=== PATIENT | male | born 1980 | race Two or more races ===

== ENCOUNTER 2016-11-06 12:26 | Emergency (ER) | payer OTHER ==
--- NOTE | 2016-11-06 12:58 | ER Document Report ---
HPI - HPI Patient complains to provider of: back pain Onset: Other - Tuesday Onset/Duration: Constant, Persistent - Chronic, Worse Quality of pain: Throbbing Pain Level: 4 Context: 36-year-old male received his third steroid injection to his back in the lumbar region for chronic back pain at the [facility]. The pain has lasted longer and has not improved as usual. He also states during the procedure and the uroscopy the M.D. told him that it did not spread out as much as usual and seemed to be blocked. No fever or chills. He's been having to take more Percocet than usual for the pain. He talked to the on-call physician last night to told him to be checked in the emergency department. No saddle anesthesia or radiculopathy. Associated Symptoms: None Exacerbated by: Sitting, Movement Relieved by: Denies Similar symptoms previously: Yes Recently seen / treated by doctor: No - ROS ROS below otherwise negative: Yes Systems Reviewed and Negative: Yes All other systems reviewed and negative - DERM Skin Color: Normal Past Medical History - General Information source: Patient - Social History Smoking Status: Unknown if Ever Smoked Frequency of alcohol use: None Drug Abuse: None Lives with: Family Family History: Reviewed & Not Pertinent Patient has suicidal ideation: No Patient has homicidal ideation: No Renal/ Medical History: Denies: Hx Peritoneal Dialysis Musculoskeltal Medical History: Reports Other - Chronic back pain and degenerative disc disease number spine Surgical Hx: Negative Vertical Provider Document - CONSTITUTIONAL Agree With Documented VS: Yes Exam Limitations: No Limitations - HEENT HEENT: Normocephalic - NECK Neck: Supple - RESPIRATORY Respiratory: Breath Sounds Normal, No Respiratory Distress O2 Sat by Pulse Oximetry: 96 - CARDIOVASCULAR Cardiovascular: Regular Rate, Regular Rhythm - BACK Back: Normal Inspection - MUSCULOSKELETAL/EXTREMETIES Musculoskeletal/Extremeties: MAEW - Superior Left sacral iliac joint, FROM, Non- Tender, Tender - Left sacral iliac - NEURO Level of Consciousness: Awake, Alert Deep Tendon Reflexes: 2+ - Bilateral ankle and patellar - DERM Integumentary: Warm, Dry, No Rash Course - Re-evaluation Re-evalutation: 11/06/16 14:[address] Beth who states that the patient can increase to 10 mg oxycodone every 4-6 hours that they will make a notation in the chart about this increase, have him call the office Tuesday for an appointment time and give him a Medrol Dosepak. - Vital Signs Vital signs: Temp Pulse Resp BP Pulse Ox 98.8 F 100 22 H 166/82 H 96 11/06/16 12:43 11/06/16 12:43 11/06/16 12:43 11/06/16 12:43 11/06/16 12:43 Discharge - Discharge Clinical Impression: low back pain post epidural injection Condition: Good Disposition: HOME, SELF-CARE Instructions: Low Back Pain ([facility]), Oral Narcotic Medication ([facility]), Warm Packs ( [facility]), Pain Medication Injection ([facility]), Steroid Medication Additional Instructions: warm compress call dr. mendenhall office tuesday, for appointment that afternoon Return to the emergency room for any worsening symptoms Prednisone taper pack Dr. Beth said that it is fine to take 10 mg of oxycodone every 4-6 hours to see them on Tuesday he will make a notation in chart Please complete the patient satisfaction survey if you get one, and return it.. If you do not receive a survey, then you can go to the [facility] website, [email or web address] and place your comments about your very good care. Thank you very much. It was a pleasure being your medical provider today. Prescriptions: Prednisone [Deltasone 10 mg Tablet] 10 mg PO ASDIR PRN #15 tablet PRN Reason: Referrals: BETTE MENDENHALL MD [ACTIVE STAFF] - 11/08/16
[2016-11-06] MEDS ORDERED: MORPHINE SULFATE 10 MG/ML INJ IM ONE (13:14)
[2016-11-06] MEDS ORDERED: ONDANSETRON 4 MG TAB.RAPDIS PO ONE (13:14)
[2016-11-06] MEDS ORDERED: PREDNISONE 20 MG TABLET PO ONE (14:23)
[2016-11-06 14:35] VITALS: BP 135/86
== END 2016-11-06 14:35 | disposition home or self-care (01) ==
LOC: ER 12:26
DX: M54.5 Low back pain (principal); M54.9 Dorsalgia, unspecified; G89.29 Other chronic pain
CPT/HCPCS: 99283; 96372; S0119; J2270; J7512

== ENCOUNTER 2017-01-04 10:38 | Emergency (ER) | payer OTHER ==
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
[2017-01-04 11:48] LABS: ABSOLUTE BASOPHILS # (AUTO) 0.1 10^3/uL (0.0-0.2); ABSOLUTE EOSINOPHILS # (AUTO) 0.1 10^3/uL (0.0-0.6); ABSOLUTE LYMPHOCYTES (AUTO) 2.1 10^3/uL (0.5-4.7); ABSOLUTE MONOCYTES (AUTO) 0.5 10^3/uL (0.1-1.4); BASOPHILS % (AUTO) 0.9 % (0-2); EOSINOPHILS % (AUTO) 1.5 % (0-6); HEMATOCRIT 44.5 % (37.9-51.0); HEMOGLOBIN 15.3 g/dL (13.5-17.0); HGB HCT DIFFERENCE 1.4; LYMPHOCYTES % (AUTO) 31.1 % (13-45); MEAN CORPUSCULAR HEMOGLOBIN 32.7 pg (27.0-33.4); MEAN CORPUSCULAR HGB CONC 34.5 g/dL (32.0-36.0); MEAN CORPUSCULAR VOLUME 95 fl (80-97); MONOCYTES % (AUTO) 7.5 % (3-13); WHITE BLOOD COUNT 6.9 10^3/uL (4.0-10.5)
[2017-01-04 11:58] LABS: APPEARANCE,URINE CLEAR; BILIRUBIN,URINE NEGATIVE (NEGATIVE); GLUCOSE, URINE NEGATIVE (NEGATIVE); KETONES,URINE NEGATIVE (NEGATIVE); LEUKOCYTE ESTERASE,URINE NEGATIVE (NEGATIVE); NITRITE,URINE NEGATIVE (NEGATIVE); PROTEIN,URINE NEGATIVE (NEGATIVE); UROBILINOGEN,URINE NEGATIVE mg/dL (<2.0)
[2017-01-04 12:04] LABS: ALANINE AMINOTRANSFERASE 29 U/L (21-72); ALBUMIN 4.8 g/dL (3.5-5.0); ALCOHOL 185 mg/dL (NONE DETECTED); ALKALINE PHOSPHATASE 53 U/L (38-126); ANION GAP 15 (5-19); ASPARTATE AMINO TRANSFERASE 21 U/L (17-59); BILIRUBIN,DIRECT 0.3 mg/dL (0.0-0.4); BILIRUBIN,TOTAL 0.5 mg/dL (0.2-1.3); BLOOD UREA NITROGEN 5 mg/dL (7-20); CALCIUM 9.3 mg/dL (8.4-10.2); CARBON DIOXIDE 32 mmol/L (22-30); CHLORIDE 106 mmol/L (98-107); CREATININE RESULT 0.81 mg/dL (0.52-1.25); GLUCOSE 106 mg/dL (75-110); POTASSIUM 4.7 mmol/L (3.6-5.0); SODIUM 153.1 mmol/L (137-145); TOTAL PROTEIN 7.6 g/dL (6.3-8.2)
[2017-01-04 12:13] LABS: URINE BARBITURATES SCREEN NEGATIVE; URINE METHADONE SCREEN NEGATIVE; URINE OPIATES LOW UNCONFIRMED POSITIVE; URINE PHENCYCLIDINE SCREEN NEGATIVE
--- NOTE | 2017-01-04 22:49 | EKG REPORT ---
SEVERITY:- NORMAL ECG - SINUS RHYTHM : Confirmed by: Juan Manuel Spears 04-Jan-2017 22:49:05
[2017-01-04] MEDS ORDERED: CLONAZEPAM 1 MG TABLET PO ONE (23:40)
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
[2017-01-05] MEDS ORDERED: OXYCODONE HCL SR 10 MG TABLET PO ONE (09:55)
--- NOTE | 2017-01-05 09:57 | ER Document Report ---
Doctor's Note Notes: 01/05/17 09:56 Evaluated, no current suicidal ideation, agrees that he needs to seek help with alcohol abuse. He and his fiance have been discussing his need for substance abuse counseling for his alcohol use. Patient will be given information regarding substance abuse. Patient will be discharged to home. Patient does take OxyContin 10 mg twice a day for his chronic back pain, this was verified with his pharmacy, patient will be given his morning dose here prior to discharge.
[2017-01-05 10:38] VITALS: BP 125/70
== END 2017-01-05 10:42 | disposition home or self-care (01) ==
LOC: ER 10:38
DX: R45.851 Suicidal ideations (principal); F10.929 Alcohol use, unspecified with intoxication, unspecified; F41.9 Anxiety disorder, unspecified; F90.9 Attention-deficit hyperactivity disorder, unspecified type; F17.200 Nicotine dependence, unspecified, uncomplicated; F43.10 Post-traumatic stress disorder, unspecified; Z72.89 Other problems related to lifestyle
CPT/HCPCS: 36415; 80053; 80307; 81001; 85025; 93005; 93010; 99284

== ENCOUNTER 2017-01-08 15:46 | Emergency (ER) | payer OTHER ==
[2017-01-08] MEDS ORDERED: OXYCODONE HCL IR 5 MG TABLET PO ONE (17:48)
--- NOTE | 2017-01-08 17:54 | ER Document Report ---
HPI - HPI Patient complains to provider of: med refill Onset: Other - 2 days Onset/Duration: Persistent Quality of pain: Sharp Pain Level: 3 Context: Patient states he has chronic low back pain and was unable to follow-up with his pain management doctor due to problems with his insurance. Patient states that he did call Dr. Beth today who said that he could come to the emergency department and get a refill for his pain medication until he can go to his appointment on Tuesday of next week. Patient denies any new injury. Patient states pain is typical of usual pain that he has had in the past. Associated Symptoms: Other - chronic low back pain, medication refill Exacerbated by: Movement Similar symptoms previously: Yes Recently seen / treated by doctor: Yes - ROS ROS below otherwise negative: Yes Systems Reviewed and Negative: Yes All other systems reviewed and negative - CONSTITUTIONAL Constitutional: DENIES: Fever - GASTROINTESTINAL Gastrointestinal: DENIES: Nausea, Patient vomiting - MUSCULOSKELETAL Musculoskeletal: REPORTS: Back Pain. DENIES: Extremity pain - DERM Skin Color: Normal Past Medical History - General Information source: Patient - Social History Smoking Status: Current Every Day Smoker Frequency of alcohol use: Occasional Drug Abuse: None Lives with: Family Family History: Reviewed & Not Pertinent Patient has suicidal ideation: No Patient has homicidal ideation: No Renal/ Medical History: Denies: Hx Peritoneal Dialysis Musculoskeltal Medical History: Reports Other - chronic back pain Psychiatric Medical History: Reports: Hx Anxiety Past Surgical History: Reports: Hx Tonsillectomy - Immunizations Hx Diphtheria, Pertussis, Tetanus Vaccination: Yes Vertical Provider Document - CONSTITUTIONAL Agree With Documented VS: Yes Exam Limitations: No Limitations General Appearance: WD/WN, No Apparent Distress - INFECTION CONTROL TRAVEL OUTSIDE OF THE [place] IN LAST 30 DAYS: No - HEENT HEENT: Atraumatic, Normocephalic - NECK Neck: Normal Inspection - RESPIRATORY Respiratory: Breath Sounds Normal, No Respiratory Distress O2 Sat by Pulse Oximetry: 98 - CARDIOVASCULAR Cardiovascular: Regular Rhythm, No Murmur, Tachycardia - BACK Back: Abnormal Inspection - left lower Lumbar paraspinal tenderness, no midline tenderness. negative: CVA Tenderness-Right, CVA Tenderness-Left - MUSCULOSKELETAL/EXTREMETIES Musculoskeletal/Extremeties: MAEW, FROM - NEURO Level of Consciousness: Awake, Alert, Appropriate Motor/Sensory: No Motor Deficit Notes: normal gait - DERM Integumentary: Warm, Dry Course - Re-evaluation Re-evalutation: 01/08/17 17:54 The patient has been informed that they may have pre-hypertension or hypertension based on a blood pressure reading in the emergency department. I recommend that patient call the primary care provider listed on their discharge instructions or a physician of their choice by this week to arrange follow-up for further evaluation of possible pre-hypertension her hypertension. - Vital Signs Vital signs: Temp Pulse Resp BP Pulse Ox 98.4 F 120 H 20 157/92 H 98 01/08/17 15:52 01/08/17 15:52 01/08/17 15:52 01/08/17 15:52 01/08/17 15:52 - Consults No standard instances Time consulted: 17:51 Reason for consultation: 01/08/17 17:[address] Beth who is on-call for [facility]. Discussed patient's presentation to the emergency department, recommends giving patient a prescription for 7 tablets of his usual pain medication as he has had difficulty getting in for his follow-up appointments. Consulted provider: follow-up in office Discharge - Discharge Clinical Impression: Elevated blood pressure reading Chronic back pain Qualifiers: Back pain location: low back pain Back pain laterality: left Sciatica presence : without sciatica Qualified Code(s): M54.5 - Low back pain Condition: Stable Disposition: HOME, SELF-CARE Instructions: Chronic Back Pain ([facility]), Oral Narcotic Medication ([facility]) Additional Instructions: Return immediately for any new or worsening symptoms Followup with your primary care provider, call tomorrow to make a followup appointment. Your blood pressure was elevated today, have your primary care provider recheck your blood pressure this week. Follow-up with your pain management doctor on Tuesday as planned Prescriptions: Ibuprofen [Motrin 800 mg Tablet] 800 mg PO Q8H PRN #15 tab PRN Reason: Oxycodone HCl 10 mg PO BID #7 tablet Forms: Elevated Blood Pressure Referrals: GINA BETH MD [ACTIVE STAFF] - 01/11/17
[2017-01-08 21:14] VITALS: BP 138/84
== END 2017-01-08 18:17 | disposition home or self-care (01) ==
LOC: ER 15:46
DX: M54.5 Low back pain (principal); G89.29 Other chronic pain; R03.0 Elevated blood-pressure reading, without diagnosis of hypertension; F17.200 Nicotine dependence, unspecified, uncomplicated
CPT/HCPCS: 99281

== ENCOUNTER 2017-03-12 08:55 | Emergency (ER) | payer OTHER ==
[2017-03-12 09:01] VITALS: BP 151/83
--- NOTE | 2017-03-12 09:23 | ER Document Report ---
ED General - General Chief Complaint: Medication Refill Stated Complaint: BREATHING DIFFICULTY/MEDICATION REFILL Time Seen by Provider: 03/12/17 09:22 Notes: 6 patient is a 36-year-old male that comes emergency department for chief complaint of chronic lower back pain and intermittent wheezing issues. He states that he was supposed to be seen Tuesday by his pain management, he is out of his pain prescription, he states he contacted them this morning and they did inform him to get a temporary prescription from his primary care provider, he states he was unable to get into his primary care provider so he came into the emergency department. 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 He reports degenerative changes in his back due to service. He denies bowel or bladder difficulties. He denies fever or chills, nausea or vomiting. He denies chest pain. He does report intermittent wheezing, states he has been stressed because of legal cruz for his children, states that he has been smoking again and now intermittently states he is hoping for an inhaler. He denies current shortness of breath. [facility] asthma as a child. TRAVEL OUTSIDE OF THE [place] IN LAST 30 DAYS: No - Related Data Allergies/Adverse Reactions: tramadol Allergy (Verified 01/08/17 15:52) Past Medical History - General Information source: Patient - Social History Smoking Status: Current Some Day Smoker Smoking Education Provided: Yes - <3 min Frequency of alcohol use: None Drug Abuse: None Lives with: Family Family History: Reviewed & Not Pertinent Pulmonary Medical History: Reports: Hx Asthma Renal/ Medical History: Denies: Hx Peritoneal Dialysis Musculoskeltal Medical History: Reports Hx Arthritis Psychiatric Medical History: Reports: Hx Anxiety Past Surgical History: Reports: Hx Tonsillectomy - Immunizations Hx Diphtheria, Pertussis, Tetanus Vaccination: Yes Review of Systems - Review of Systems Constitutional: No symptoms reported EENT: No symptoms reported Cardiovascular: No symptoms reported Respiratory: See HPI Gastrointestinal: No symptoms reported Genitourinary: No symptoms reported Male Genitourinary: No symptoms reported Musculoskeletal: See HPI Skin: No symptoms reported Hematologic/Lymphatic: No symptoms reported Neurological/Psychological: See HPI Physical Exam - Vital signs Vitals: Temp Pulse Resp BP Pulse Ox 98.2 F 108 H 16 151/83 H 97 03/12/17 08:57 03/12/17 08:57 03/12/17 08:57 03/12/17 08:57 03/12/17 08:57 Interpretation: Normal - General General appearance: Appears well, Alert In distress: None - HEENT Head: Normocephalic, Atraumatic Eyes: Normal Pupils: PERRL - Respiratory Respiratory status: No respiratory distress. No: Labored, Tachypnea Chest status: Nontender Breath sounds: Normal, Wheezing - a few small scattered wheezes, good air movement noted however. No: Decreased air movement Chest palpation: Normal - Cardiovascular Rhythm: Regular. No: Tachycardia Heart sounds: Normal auscultation, S1 appreciated, S2 appreciated Murmur: No - Abdominal Inspection: Normal Distension: No distension Bowel sounds: Normal Tenderness: Nontender Organomegaly: No organomegaly - Back Back: Normal, Nontender. No: Tender - Extremities General upper extremity: Normal inspection, Nontender, Normal color, Normal ROM , Normal temperature General lower extremity: Normal inspection, Nontender, Normal color, Normal ROM , Normal temperature, Normal weight bearing. No: Arlin's sign - Neurological Neuro grossly intact: Yes Cognition: Normal Orientation: AAOx4 Calvin Coma Scale Eye Opening: Spontaneous Calvin Coma Scale Verbal: Oriented [place] Coma Scale Motor: Obeys Commands Calvin Coma Scale Total: 15 Speech: Normal Motor strength normal: LUE, RUE, LLE, RLE Sensory: Normal - Psychological Associated symptoms: Normal affect, Normal mood - Skin Skin Temperature: Warm Skin Moisture: Dry Skin Color: Normal Course - Re-evaluation Re-evalutation: Patient alert, well appearing. No tachycardia on my exam. A few scattered wheezes, no hypoxia or tachypnea. Giving inhaler, discussed smoking cessation. 03/12/17 09:[address] Bonilla, field ironworker for [place] [facility]. She was reports she spoke with patient earlier this morning, she is aware of the situation, she does recommend that patient receive a prescription for 10 mg of oxycodone twice a day for 7 days. She states that he will be seen on Tuesday in the clinic for the remainder of his scripts. I spoke with patient, patient states gratefulness, agrees that he will return if he worsens especially if he develops difficulty breathing. He states he will stop smoking. - Vital Signs Vital signs: Temp Pulse Resp BP Pulse Ox 98.2 F 108 H 16 151/83 H 97 03/12/17 08:57 08/19/17 08:57 03/12/17 08:57 03/12/17 08:57 03/12/17 08:57 Discharge - Discharge Clinical Impression: Wheezing, Tobacco abuse Chronic lower back pain Qualifiers: Back pain laterality: bilateral Sciatica presence: without sciatica Qualified Code(s): M54.5 - Low back pain Condition: Stable Disposition: HOME, SELF-CARE Additional Instructions: Take medication as prescribed. Follow up on Tuesday as planned. Stop smoking. Use inhaler as needed for wheezing symptoms. Return to the ED for any concerning symptoms. Prescriptions: RX: Albuterol Sulfate [Proair HFA Inhalation Aerosol 8.5 gm MDI] 2 puff IH Q4H PRN #1 mdi PRN Reason: RX: Oxycodone HCl [Oxycodone HCl 10 MG Tablet] 1 mg PO BID #14 tablet Forms: Smoking Cessation Education
[2017-03-12] MEDS ORDERED: ALBUTEROL SULFATE HFA (90 MCG/PUFF) 8 GM MDI (1 MDI/ER DISP) IH ONE (09:26)
== END 2017-03-12 09:34 | disposition home or self-care (01) ==
LOC: ER 08:55
DX: J45.909 Unspecified asthma, uncomplicated (principal); M54.5 Low back pain; F17.200 Nicotine dependence, unspecified, uncomplicated
CPT/HCPCS: 99281; J3490

== ENCOUNTER 2020-03-30 16:13 | Emergency (ER) | payer BC ==
--- NOTE | 2020-03-30 16:37 | ER Document Report ---
ED Medical Screen (RME) - General Chief Complaint: Back Pain Stated Complaint: FLANK PAIN/RIB PAIN Time Seen by Provider: 03/30/20 16:26 TRAVEL OUTSIDE OF THE [place] IN LAST 30 DAYS: No - HPI Notes: 03/30/20 16:35 I performed a brief medical screening exam on the patient determined that the patient needs further evaluation and management by main side provider. I have placed initial orders to help expedite care. 39-year-old male to the emergency department with complaints of right-sided rib pain that wraps around to his flank gives him little bit of shortness of breath. Is been going on for the past 3 days but has been getting progressively worse. States he has a history of a pinched nerve but he has had it under control for quite a while. He states that he has been working from home and he thinks that potentially it may have aggravated it. He states that shortness of breath is a new symptom for him. He denies any chest pain, cough, fever, nausea, vomiting, diarrhea. Noted tachycardia of 148. - Related Data Allergies/Adverse Reactions: tramadol Allergy (Verified 01/08/17 15:52) Past Medical History Pulmonary Medical History: Reports: Hx Asthma Renal/ Medical History: Denies: Hx Peritoneal Dialysis Musculoskeltal Medical History: Reports Hx Arthritis Psychiatric Medical History: Reports: Hx Anxiety Past Surgical History: Reports: Hx Tonsillectomy - Immunizations Hx Diphtheria, Pertussis, Tetanus Vaccination: Yes Physical Exam - Vital signs Vitals: Temp Pulse Resp BP Pulse Ox 98.1 F 148 H 20 109/69 100 03/30/20 16:19 03/30/20 16:19 03/30/20 16:19 03/30/20 16:19 03/30/20 16:19 Course - Vital Signs Vital signs: Temp Pulse Resp BP Pulse Ox 98.1 F 148 H 20 109/69 100 03/30/20 16:19 03/30/20 16:19 03/30/20 16:19 03/30/20 16:19 03/30/20 16:19
[2020-03-30 17:11] LABS: ABSOLUTE BASOPHILS # (AUTO) 0.1 10^3/uL (0.0-0.2); ABSOLUTE EOSINOPHILS # (AUTO) 0.1 10^3/uL (0.0-0.6); ABSOLUTE LYMPHOCYTES (AUTO) 1.6 10^3/uL (0.5-4.7); ABSOLUTE MONOCYTES (AUTO) 0.7 10^3/uL (0.1-1.4); ABSOLUTE NEUT (AUTO) 7.2 10^3/uL (1.7-8.2); BASOPHILS % (AUTO) 0.6 % (0-2); EOSINOPHILS % (AUTO) 0.7 % (0-6); HEMATOCRIT 43.2 % (37.9-51.0); LYMPHOCYTES % (AUTO) 16.5 % (13-45); MEAN CORPUSCULAR HEMOGLOBIN 31.4 pg (27.0-33.4); MEAN CORPUSCULAR HGB CONC 34.8 g/dL (32.0-36.0); MEAN CORPUSCULAR VOLUME 90 fl (80-97); MONOCYTES % (AUTO) 7.4 % (3-13); PLATELET COUNT 346 10^3/uL (150-450); RED BLOOD COUNT 4.78 10^6/uL (4.35-5.55); RED CELL DISTRIBUTION WIDTH 13.2 % (11.5-14.0); SEGMENTED NEUTROPHILS % (AUTO) 74.8 % (42-78); TOTAL CELLS COUNTED % (AUTO) 100 %; WHITE BLOOD COUNT 9.6 10^3/uL (4.0-10.5)
--- NOTE | 2020-03-30 17:15 | RADIOLOGY REPORT (SQ) ---
EXAM DESCRIPTION: CHEST 2 VIEWS IMAGES COMPLETED DATE/TIME: 03/30/2020 3:59 pm REASON FOR STUDY: rib pain, SOB . COMPARISON: None. EXAM PARAMETERS: NUMBER OF VIEWS: two views TECHNIQUE: Digital Frontal and Lateral radiographic views of the chest acquired. RADIATION DOSE: NA LIMITATIONS: none FINDINGS: LUNGS AND PLEURA: No opacities, masses or pneumothorax. No pleural effusion. MEDIASTINUM AND HILAR STRUCTURES: No masses or contour abnormalities. HEART AND VASCULAR STRUCTURES: Heart normal size. No evidence for failure. BONES: No acute findings. HARDWARE: None in the chest. OTHER: No other significant finding. IMPRESSION: NO ACUTE RADIOGRAPHIC FINDING IN THE CHEST. TECHNICAL DOCUMENTATION: JOB ID: [id number] 2010 [employer]- All Rights Reserved Reading location - IP/workstation name: [email or web address]
[2020-03-30 17:20] LABS: ALBUMIN 4.6 g/dL (3.5-5.0); ALKALINE PHOSPHATASE 68 U/L (38-126); ANION GAP 8 (5-19); ASPARTATE AMINO TRANSFERASE 19 U/L (17-59); BILIRUBIN,DIRECT 0.4 mg/dL (0.0-0.4); BILIRUBIN,TOTAL 0.7 mg/dL (0.2-1.3); BLOOD UREA NITROGEN 16 mg/dL (7-20); CALCIUM 9.7 mg/dL (8.4-10.2); CARBON DIOXIDE 27 mmol/L (22-30); CHLORIDE 107 mmol/L (98-107); GLUCOSE 113 mg/dL (75-110); POTASSIUM 4.3 mmol/L (3.6-5.0); TOTAL PROTEIN 7.4 g/dL (6.3-8.2)
--- NOTE | 2020-03-30 18:37 | EKG REPORT ---
SEVERITY:- ABNORMAL ECG - SINUS TACHYCARDIA BORDERLINE INFERIOR Q WAVES LATERAL INFARCT, OLD REPOL ABNRM SUGGESTS ISCHEMIA, INFERIOR LEADS BIATRIAL ENLARGEMENT : Confirmed by: Bean Forbes MD 30-Mar-2020 18:36:22
[2020-03-30] MEDS ORDERED: DEXAMETHASONE SOD PHOS INJ 10 MG/1 ML VIAL IV ONE (18:44)
[2020-03-30] MEDS ORDERED: HYDROMORPHONE HCL INJ/PF 2 MG/ML AMPULE IV ONE ×2 (18:44→20:40)
[2020-03-30] MEDS ORDERED: KETOROLAC TROMETHAMINE INJ/PF 30 MG/1 ML SDV IV ONE (18:44)
[2020-03-30] MEDS ORDERED: LORAZEPAM INJ 2 MG/1 ML VIAL IV ONE (18:45)
--- NOTE | 2020-03-30 20:39 | ER Document Report ---
ED General - General Chief Complaint: Back Pain Stated Complaint: FLANK PAIN/RIB PAIN Time Seen by Provider: 03/30/20 16:26 Notes: 39-year-old man presenting to the emergency department with a history of chronic pain involving the lower back and right rib cage area. He apparently has had ongoing problems secondary to injuries which he sustained over years of service. He had been in pain management until 1 year ago when he decided that he would discontinue chronic pain medications. He been doing well until 2 weeks ago when he began to have increasing pain in the lower back and right side. He is here today requesting medications for pain and prescriptions for outpatient medications. TRAVEL OUTSIDE OF THE [place] IN LAST 30 DAYS: No - Related Data Allergies/Adverse Reactions: tramadol Allergy (Verified 01/08/17 15:52) Past Medical History - Social History Smoking Status: Current Every Day Smoker Family History: Reviewed & Not Pertinent Pulmonary Medical History: Reports: Hx Asthma Renal/ Medical History: Denies: Hx Peritoneal Dialysis Musculoskeletal Medical History: Reports Hx Arthritis Psychiatric Medical History: Reports: Hx Anxiety Past Surgical History: Reports: Hx Tonsillectomy - Immunizations Hx Diphtheria, Pertussis, Tetanus Vaccination: Yes Review of Systems - Review of Systems Notes: Constitutional: Negative for fever. HENT: Negative for sore throat. Eyes: Negative for visual changes. Cardiovascular: Negative for chest pain. Respiratory: Negative for shortness of breath. Gastrointestinal: Negative for abdominal pain, vomiting or diarrhea. Genitourinary: Negative for dysuria. Musculoskeletal: + Back pain, + rib cage pain right side. Skin: Negative for rash. Neurological: Negative for headaches, weakness or numbness. 10 point ROS negative except as marked above and in HPI. Physical Exam - Vital signs Vitals: Temp Pulse Resp BP Pulse Ox 98.1 F 148 H 20 109/69 100 03/30/20 16:19 03/30/20 16:19 03/30/20 16:19 03/30/20 16:19 03/30/20 16:19 - Notes Notes: PHYSICAL EXAMINATION: Physical Exam: General: Well-nourished well-developed moderate distress secondary to pain and right-sided rib cage pain HEENT: NC/AT, pupils equal round and reactive to light, MM moist,nares clear, oropharynx clear, airway patent Neck: supple, no adenopathy, no masses. Good range of motion Lungs: clear, no wheezing, no rales no rhonchi CVS: Regular rate and rhythm no murmur gallop or rub Abdomen: Soft, active, nontender, no masses, no hepatosplenomegaly Back: Tenderness in the lower lumbar paraspinous muscle group right side, tenderness in the right rib cage. No signs of trauma Ext: No edema, clubbing or cyanosis. Neuro: Alert and responsive, moving all 4 extremities on command, cranial nerves intact, no focal findings Skin: Intact no open lesions, no rash Course - Re-evaluation Re-evalutation: 03/30/20 21:55 The patient was given pain medications in the emergency department, he is asking for medications to take at home. Given the Dosepak of Elkridge and Zofran. Prescriptions were sent to the pharmacy for Elk[place], gabapentin, and Flexeril. - Vital Signs Vital signs: Temp Pulse Resp BP Pulse Ox 98.1 F 148 H 20 109/68 99 03/30/20 16:19 03/30/20 16:19 03/30/20 21:01 03/30/20 21:01 03/30/20 21:01 03/30/20 20:37 Patient received a combination of medications and follow-up, limiting Toradol, hydromorphone, lorazepam, Decadron. He had a brief period of pain relief and then states that the pain came back with a vengeance. I have, I will give him a second course of medications and will be discharged home with prescriptions and a Dosepak of medications to take tonight. - Laboratory Result Diagrams: 03/30/20 16:52 03/30/20 16:52 Laboratory results interpreted by me: 03/30/20 16:52 Glucose 113 H Discharge - Discharge Clinical Impression: Acute exacerbation of chronic low back pain, Rib pain on right side Condition: Good Disposition: HOME, SELF-CARE Instructions: Anti-Inflammatory Medication ([facility]), Chest Wall Pain ([facility]), Ice Packs ([facility]), Low Back Pain ([facility]) Additional Instructions: Your seen in the emergency department today with the acute exacerbation of your chronic back pain and side pain. You are given pain medications in the emergency department and a pack of [place] to take at home. Prescription for muscle relaxant, prednisone Dosepak, and gabapentin are sent to your pharmacy. Please contact your doctors on Tuesday for follow-up and continued management of this problem. HOME CARE INSTRUCTIONS & INFORMATION: Thank you for choosing us for your medical needs. We hope you're satisfied with the care you received. After you leave, you must properly care for your problem and, at the same time, observe its progress. Any condition can change. Some illnesses can change rapidly over hours or days. If your condition worsens, return to the Emergency Department or see your physician promptly. ABOUT YOUR X-RAYS AND EKG'S: If you had an EKG or X-rays taken, they have been read by the Emergency Physician. The X-rays and EKG's will also be read by a Ra diologist or Warehouse Person within 24 hours. If discrepancies are noted, you will be notified by telephone. Please be certain the ED has a correct telephone number & address where you can be reached. Also, realize that some fractures or abnormalities do not show up on initial X-rays. If your symptoms continue, see your physician. ABOUT YOUR LABORATORY TEST: If you had laboratory tests, the results have been reviewed by the Emergency Physician. Some test results (for example cultures) may not be available for several days. You will be contacted if any test result shows you need additional treatment. Please be certain the ED has a correct telephone number and address where you can be reached. ABOUT YOUR MEDICATIONS: You will receive instructions on how to take your medicine on the prescription label you receive. Additional information may be provided by the Pharmacy. If you have questions afterwards, call the ED for clarification or further instructions. Some prescribed medications may cause drowsiness. Do not perform tasks such as driving a car or operating machinery without consulting your Pharmacist. If you feel you need a refill of pain medication, your condition will need re-evaluation. Please do not call for a refill of any medication. ABOUT YOUR SIGNATURE: Signature of this document acknowledges to followin. Understanding that you received emergency treatment and that you may be released before al medical problems are known or treated. Please be certain the ED has a correct phone number & address where you can be reached. 2. Acknowledgement that you will arrange for follow-up care as recommended. 3. Authorization for the Emergency Physician to provide information to your follow-up Physician in order to maximize your care. AT ANY TIME, IF YOUR SYMPTOMS CHANGE SIGNIFICANTLY OR WORSEN OR YOU DEVELOP NEW SYMPTOMS, RETURN TO THE EMERGENCY DEPARTMENT IMMEDIATELY FOR RE-EVALUATION. OUR GOAL IS TO PROVIDE EXCELLENT MEDICAL CARE! WE HOPE THAT WE HAVE MET YOUR EXPECTATIONS DURING YOUR EMERGENCY DEPARTMENT VISIT AND THAT YOU FEEL YOU HAVE RECEIVED EXCELLENT CARE! Prescriptions: Cyclobenzaprine HCl [Flexeril 10 mg Tablet] 10 mg PO TIDP PRN #15 tab PRN Reason: Naproxen [Naprosyn] 500 mg PO BID #20 tablet Gabapentin [Neurontin 100 mg Capsule] 100 mg PO Q8 #30 capsule Hydrocodone/Acetaminophen [Elkridge 5-325 mg Tablet] 1 tab PO Q6 PRN #10 tablet PRN Reason:
[2020-03-30 21:21] VITALS: BP 109/68
[2020-03-30] MEDS ORDERED: ONDANSETRON ODT 4 MG TAB (6 TAB/ER DISP) PO PRN (21:57)
[2020-03-30] MEDS ORDERED: HYDROCODONE/ACETAMINOPHEN 5-325 MG (6 TAB/ER DISP) PO PRN (21:57)
== END 2020-03-30 22:05 | disposition home or self-care (01) ==
LOC: ER 16:13
DX: R07.81 Pleurodynia (principal); M54.5 Low back pain; G89.29 Other chronic pain; M54.9 Dorsalgia, unspecified; R10.9 Unspecified abdominal pain; Z88.8 Allergy status to other drugs, medicaments and biological substances; F17.200 Nicotine dependence, unspecified, uncomplicated; J45.909 Unspecified asthma, uncomplicated
CPT/HCPCS: 93005; 96376; 99285; 96374; 96375; 36415; 85025; 80053; 71046; 93010; J1885; J1170; J2060; J1100

== ENCOUNTER 2020-04-08 11:01 | Emergency (ER) | payer BC ==
--- NOTE | 2020-04-08 11:29 | ER Document Report ---
ED Medical Screen (RME) - General Chief Complaint: General Weakness Stated Complaint: WEAKNESS Time Seen by Provider: 04/08/20 11:15 TRAVEL OUTSIDE OF THE [place] IN LAST 30 DAYS: No - HPI Notes: 04/08/20 11:27 39-year-old male with a history of ADHD presents to the emergency room with his via EMS for complaints of feeling disorientated, falling asleep and then gasping for air at night, slowed speech, poor memory as last night. states that patient has had episodes of this in the past for at least the last 5 years but is never been "this bad". Has never been evaluated by a medical provider for these issues. states that he cannot remember much of the last 18 hours. Patient is seen by [facility] for his ADHD, he is taking Adderall for this. Denies any medical history otherwise. Denies any illicit drug use. While in conversation patient would intermittently fall asleep while I was speaking to his and to him. Denies any chest pain, shortness of breath, fevers chills, nausea vomiting or diarrhea I have greeted and performed a rapid initial assessment of this patient. A comprehensive ED assessment and evaluation of the patient, analysis of test results and completion of the medical decision making process will be conducted by additional ED providers. PHYSICAL EXAMINATION: GENERAL: Well-appearing, well-nourished and in no acute distress. HEAD: Atraumatic, normocephalic. EYES: Pupils equal round extraocular movements intact, conjunctiva are normal. NECK: Normal range of motion CV: s1, s2 regular LUNGS: No respiratory distress Musculoskeletal: Normal range of motion NEUROLOGICAL: Normal speech. Orientated x3 SKIN: Warm, Dry, normal turgor, no rashes or lesions noted. - Related Data Allergies/Adverse Reactions: tramadol Allergy (Verified 04/08/20 11:13) Home Medications: adderall. flexeril Past Medical History - Social History Chew tobacco use (# tins/day): No Frequency of alcohol use: None Drug Abuse: None Pulmonary Medical History: Reports: Hx Asthma Renal/ Medical History: Denies: Hx Peritoneal Dialysis Musculoskeltal Medical History: Reports Hx Arthritis Psychiatric Medical History: Reports: Hx Anxiety Past Surgical History: Reports: Hx Tonsillectomy - Immunizations Hx Diphtheria, Pertussis, Tetanus Vaccination: Yes Physical Exam - Vital signs Vitals: Temp Pulse Resp BP Pulse Ox 98.9 F 92 16 125/80 91 L 04/08/20 11:07 04/08/20 11:07 04/08/20 11:07 04/08/20 11:07 04/08/20 11:07 Course - Vital Signs Vital signs: Temp Pulse Resp BP Pulse Ox 98.9 F 92 16 125/80 91 L 04/08/20 11:07 04/08/20 11:07 04/08/20 11:07 04/08/20 11:07 04/08/20 11:07
--- NOTE | 2020-04-08 12:07 | RADIOLOGY REPORT (SQ) ---
EXAM DESCRIPTION: CT HEAD WITHOUT IMAGES COMPLETED DATE/TIME: 04/08/2020 11:47 am REASON FOR STUDY: intermittent AMS COMPARISON: None. TECHNIQUE: Axial images acquired through the brain without intravenous contrast. Images reviewed wi th bone, brain and subdural windows. Images stored on PACS. All CT scanners at this facility use dose modulation, iterative reconstruction, and/or weight based d osing when appropriate to reduce radiation dose to as low as reasonably achievable (ALARA). [facility]: Dose Right [facility]: CareDose [facility]: Dose Right [facility]: Teradose 4D [facility]: [employer] The Campaign RADIATION DOSE: CT Rad equipment meets quality standard of care and radiation dose reduction techniq ues were employed. CTDIvol: 53.2 mGy. DLP: 1097 mGy-cm. mGy. LIMITATIONS: None. FINDINGS: VENTRICLES: Normal size and contour. CEREBRUM: No masses. No hemorrhage. No midline shift. No evidence for acute infarction. Normal gra y/white matter differentiation. No areas of low density in the white matter. CEREBELLUM: No masses. No hemorrhage. No alteration of density. No evidence for acute infarction. EXTRAAXIAL SPACES: No fluid collections. No masses. ORBITS AND GLOBE: No intra- or extraconal masses. Normal contour of globe without masses. CALVARIUM: No fracture. PARANASAL SINUSES: No fluid or mucosal thickening. SOFT TISSUES: No mass or hematoma. OTHER: No other significant finding. IMPRESSION: NORMAL BRAIN CT WITHOUT CONTRAST. EVIDENCE OF ACUTE STROKE: NO. COMMENT: Quality ID # [id number]: Final reports with documentation of one or more dose reduction techniques (e.g., Automated exposure control, adjustment of the mA and/or kV according to patient size, use of iterative reconstruction technique) TECHNICAL DOCUMENTATION: JOB ID: [id number] 2010 [employer]- All Rights Reserved Reading location - IP/workstation name: [email or web address]
[2020-04-08 12:16] LABS: ABSOLUTE BASOPHILS # (AUTO) 0.1 10^3/uL (0.0-0.2); ABSOLUTE EOSINOPHILS # (AUTO) 0.1 10^3/uL (0.0-0.6); ABSOLUTE LYMPHOCYTES (AUTO) 1.8 10^3/uL (0.5-4.7); BASOPHILS % (AUTO) 0.4 % (0-2); EOSINOPHILS % (AUTO) 0.7 % (0-6); HEMATOCRIT 35.9 % (37.9-51.0); HEMOGLOBIN 12.8 g/dL (13.5-17.0); LYMPHOCYTES % (AUTO) 12.7 % (13-45); MEAN CORPUSCULAR HGB CONC 35.7 g/dL (32.0-36.0); MEAN CORPUSCULAR VOLUME 89 fl (80-97); MONOCYTES % (AUTO) 7.1 % (3-13); PLATELET COUNT 232 10^3/uL (150-450); RED BLOOD COUNT 4.01 10^6/uL (4.35-5.55); RED CELL DISTRIBUTION WIDTH 12.9 % (11.5-14.0); SEGMENTED NEUTROPHILS % (AUTO) 79.1 % (42-78); TOTAL CELLS COUNTED % (AUTO) 100 %; WHITE BLOOD COUNT 13.9 10^3/uL (4.0-10.5)
--- NOTE | 2020-04-08 12:27 | RADIOLOGY REPORT (SQ) ---
EXAM DESCRIPTION: CHEST 2 VIEWS IMAGES COMPLETED DATE/TIME: 04/08/2020 11:02 am REASON FOR STUDY: intermittent AMS COMPARISON: 03/30/2020 EXAM PARAMETERS: NUMBER OF VIEWS: two views TECHNIQUE: Digital Frontal and Lateral radiographic views of the chest acquired. RADIATION DOSE: NA LIMITATIONS: none FINDINGS: LUNGS AND PLEURA: No opacities, masses or pneumothorax. No pleural effusion. MEDIASTINUM AND HILAR STRUCTURES: No masses or contour abnormalities. HEART AND VASCULAR STRUCTURES: Heart normal size. No evidence for failure. BONES: No acute findings. HARDWARE: None in the chest. OTHER: No other significant finding. IMPRESSION: NO ACUTE RADIOGRAPHIC FINDING IN THE CHEST. TECHNICAL DOCUMENTATION: JOB ID: [id number] 2010 [employer]- All Rights Reserved Reading location - IP/workstation name: [email or web address]
[2020-04-08 12:46] LABS: ALKALINE PHOSPHATASE 67 U/L (38-126); ANION GAP 6 (5-19); ASPARTATE AMINO TRANSFERASE 30 U/L (17-59); BILIRUBIN,DIRECT 0.2 mg/dL (0.0-0.4); BILIRUBIN,TOTAL 1.3 mg/dL (0.2-1.3); BLOOD UREA NITROGEN 11 mg/dL (7-20); CARBON DIOXIDE 29 mmol/L (22-30); CHLORIDE 94 mmol/L (98-107); GLUCOSE 94 mg/dL (75-110); POTASSIUM 4.6 mmol/L (3.6-5.0); TOTAL PROTEIN 6.3 g/dL (6.3-8.2)
[2020-04-08] MEDS ORDERED: NORMAL SALINE 1000 ML 1,000 ML IV ONE (14:47)
--- NOTE | 2020-04-08 16:19 | ER Document Report ---
ED General <TARUN PIERCE - Last Filed: 04/08/20 17:09> - General Information source: Patient, Relative TRAVEL OUTSIDE OF THE [place] IN LAST 30 DAYS: No - HPI Onset: Yesterday Onset/Duration: Better Quality of pain: No pain Associated symptoms: Other - Gasping for breath during sleep, confusion during the night Exacerbated by: Denies Relieved by: Denies Similar symptoms previously: Yes Recently seen / treated by doctor: Yes - Related Data Home Medications: adderall. flexeril <JEAN MARTELL - Last Filed: 04/08/20 20:26> - General Chief Complaint: General Weakness Stated Complaint: WEAKNESS Time Seen by Provider: 04/08/20 11:15 Primary Care Provider: LUIZA HOLDER MD [Primary Care Provider] - Follow up tomorrow Notes: Patient presents with spouse who reports that patient has been occasionally gasping for air while sleeping since 10 PM last night. Patient's states that whenever she wakes him up he has slow deliberate speech and poor memory. states that he will occasionally sit up and lift his head up during sleep and has done this for the past 5 years. Patient did have a sleep study although they never followed up about the results of the sleep study previously. also states that he did have an episode where he had blood from his nostril and this got her concerned so she called 911. Patient initially was not cooperative and did not initially agree to come to the hospital. states that he typically has had breathing episodes similar to the sleep apnea about 10 times over the past 3 years and his most recent episode was 4 days ago. Patient states that he will occasionally go several days in a row with only 2 hours each day of sleep and then will have a day in which he sleeps heavily. Patient states he had normal sleep yesterday. states that presently patient is more awake alert and his symptoms seem to be almost completely resolved at this time. (JEAN MARTELL) - Related Data Allergies/Adverse Reactions: tramadol Allergy (Verified 04/08/20 11:13) Past Medical History - General Information source: Patient, Relative - Social History Smoking Status: Current Every Day Smoker Chew tobacco use (# tins/day): No Frequency of alcohol use: None Drug Abuse: None Lives with: Family Family History: Reviewed & Not Pertinent Patient has homicidal ideation: No Pulmonary Medical History: Reports: Hx Asthma Renal/ Medical History: Denies: Hx Peritoneal Dialysis Musculoskeletal Medical History: Reports Hx Arthritis Psychiatric Medical History: Reports: Hx Anxiety Past Surgical History: Reports: Hx Tonsillectomy - Immunizations Hx Diphtheria, Pertussis, Tetanus Vaccination: Yes <JEAN MARTELL - Last Filed: 04/08/20 20:26> Review of Systems - Review of Systems Constitutional: No symptoms reported. denies: Recent illness EENT: No symptoms reported Cardiovascular: No symptoms reported. denies: Chest pain Respiratory: Other - Occasional gasping during sleep for breath. denies: Cough, Short of breath Gastrointestinal: No symptoms reported. denies: Nausea, Vomiting Genitourinary: No symptoms reported Male Genitourinary: No symptoms reported Musculoskeletal: No symptoms reported Skin: No symptoms reported Hematologic/Lymphatic: No symptoms reported Neurological/Psychological: Confusion - For brief episodes during the night per spouse <JEAN MARTELL - Last Filed: 04/08/20 20:26> Physical Exam - General General appearance: Appears well, Alert In distress: None - HEENT Head: Normocephalic, Atraumatic Eyes: Normal Conjunctiva: Normal Extraocular movements intact: Yes Eyelashes: Normal Pupils: PERRL External canal: Normal Nasal: Normal Mouth/Lips: Normal Mucous membranes: Normal Neck: Normal, Supple. No: Lymphadenopathy, Meningismus - Respiratory Respiratory status: No respiratory distress Chest status: Nontender Breath sounds: Normal. No: Rales, Rhonchi, Stridor, Wheezing Chest palpation: Normal - Cardiovascular Rhythm: Regular Heart sounds: S1 appreciated, S2 appreciated Murmur: No - Abdominal Inspection: Normal Distension: No distension Bowel sounds: Normal Tenderness: Nontender - Back Back: Normal, Nontender - Extremities General upper extremity: Normal inspection, Normal ROM, Normal strength General lower extremity: Normal inspection, Normal ROM, Normal strength - Neurological Neuro grossly intact: Yes Cognition: Normal Greybull Coma Scale Eye Opening: Spontaneous Greybull Coma Scale Verbal: Oriented Calvin Coma Scale Motor: Obeys Commands Calvin Coma Scale Total: 15 Speech: Normal. No: Dysarthria Cranial nerves: Normal. No: Facial palsy, Forehead sparing, Tongue deviation Cerebellar coordination: Normal, Heel-ivory, Finger-nose rhombey, Rapid alt. movements Motor strength normal: LUE, RUE, LLE, RLE Additional motor exam normals: Equal milieu counselor. No: Weakness - Psychological Associated symptoms: Normal affect, Normal mood - Skin Skin Temperature: Warm Skin Moisture: Dry Skin Color: Normal <IWONA MARTELLZABRINA - Last Filed: 04/08/20 20:26> - Vital signs Vitals: Temp Pulse Resp BP Pulse Ox 98.9 F 92 16 125/80 91 L 04/08/20 11:07 04/08/20 11:07 04/08/20 11:07 04/08/20 11:07 04/08/20 11:07 - General Notes: Sleeping, arouses easily to voice (JEAN MARTELL) Course - Laboratory Result Diagrams: 04/08/20 11:58 04/08/20 11:58 <TARUN PIERCE - Last Filed: 04/08/20 17:09> - Laboratory Result Diagrams: 04/08/20 11:58 04/08/20 11:58 - EKG Interpretation by Me EKG shows normal: Sinus rhythm Rate: Normal When compared to previous EKG there are: Changes noted - Today's EKG improved as compared to prior <JEAN MARTELL - Last Filed: 04/08/20 20:26> - Re-evaluation Re-evalutation: 04/08/20 18:25 Patient without any focal neurologic deficits. Patient with normal neurologic examination at this time. Patient's urine drug screen did test positive for opiates as well as methadone, patient is not currently prescribed any methadone. Of note patient's drug screen was negative for amphetamines although patient does take Adderall. Patient is also currently prescribed gabapentin, Ativan, Flexeril and Marrero. Suspect likely drug interaction between his prescribed and nonprescribed drugs he is currently using. Suspect likely polysubstance abuse and adverse medication interactions. Consulted with Dr. Wilson who agrees with disposition at this time. 04/08/20 18:39 Patient is awake alert oriented, no drowsiness at this time. Patient encouraged to avoid use of methadone and other substances that he is not currently prescribed. Patient also educated on importance of not mixing his benzodiazepine drug with other sedating medications to avoid adverse interactions including . Patient encouraged to follow-up with his primary doctor on outpatient basis as well as to keep the sleep diary as well as obtain an outpatient sleep study. Patient and his verbalized understanding and is agreeable with discharge at this time. 04/08/20 18:40 04/08/20 20:25 (JEAN MARTELL) - Vital Signs Vital signs: Temp Pulse Resp BP Pulse Ox 98.7 F 74 16 124/85 97 04/08/20 19:19 04/08/20 19:19 04/08/20 19:19 04/08/20 19:19 04/08/20 19:19 - Laboratory Laboratory results interpreted by me: 04/08/20 04/08/20 04/08/20 11:58 11:58 11:58 WBC 13.9 H RBC 4.01 L Hgb 12.8 L Hct 35.9 L Lymph % (Auto) 12.7 L Absolute Neuts (auto) 11.0 H Seg Neutrophils % 79.1 H Sodium 128.6 L Chloride 94 L TSH 0.29 L Free T3 pg/mL Urine Ketones 04/08/20 04/08/20 11:58 17:01 WBC RBC Hgb Hct Lymph % (Auto) Absolute Neuts (auto) Seg Neutrophils % Sodium Chloride TSH Free T3 pg/mL 5.42 H Urine Ketones TRACE H 04/08/20 18:25 Labs- All tests 24 hr 04/08/20 04/08/20 04/08/20 11:58 11:58 11:58 WBC 13.9 H RBC 4.01 L Hgb 12.8 L Hct 35.9 L MCV 89 MCH 32.0 MCHC 35.7 RDW 12.9 Plt Count 232 Lymph % (Auto) 12.7 L Vernon % (Auto) 7.1 Eos % (Auto) 0.7 Baso % (Auto) 0.4 Absolute Neuts (auto) 11.0 H Absolute Lymphs (auto) 1.8 Absolute Monos (auto) 1.0 Absolute Eos (auto) 0.1 Absolute Basos (auto) 0.1 Seg Neutrophils % 79.1 H Sodium 128.6 L Potassium 4.6 Chloride 94 L Carbon Dioxide 29 Anion Gap 6 BUN 11 Creatinine 0.68 Est GFR ( Amer) > 60 Est GFR (MDRD) Non-Af > 60 Glucose 94 Calcium 9.0 Magnesium 2.0 Total Bilirubin 1.3 Direct Bilirubin 0.2 Neonat Total Bilirubin Not Reportable Neonat Direct Bilirubin Not Reportable Neonat Indirect Bili Not Reportable AST 30 ALT 16 Alkaline Phosphatase 67 Total Protein 6.3 Albumin 4.0 TSH Free T4 Free T3 pg/mL Urine Color Urine Appearance Urine pH Ur Specific [place] Urine Protein Urine Glucose (UA) Urine Ketones Urine Blood Urine Nitrite Urine Bilirubin Urine Urobilinogen Ur Leukocyte Esterase Urine WBC (Auto) Urine Mucus (Auto) Urine Ascorbic Acid Urine Opiates Screen Urine Methadone Screen Ur Barbiturates Screen Ur Phencyclidine Scrn Ur Amphetamines Screen U Benzodiazepines Scrn Urine Cocaine Screen U Marijuana (THC) Screen Serum Alcohol < 10 04/08/20 04/08/20 04/08/20 11:58 11:58 17:01 WBC RBC Hgb Hct MCV MCH MCHC RDW Plt Count Lymph % (Auto) Vernon % (Auto) Eos % (Auto) Baso % (Auto) Absolute Neuts (auto) Absolute Lymphs (auto) Absolute Monos (auto) Absolute Eos (auto) Absolute Basos (auto) Seg Neutrophils % Sodium Potassium Chloride Carbon Dioxide Anion Gap BUN Creatinine Est GFR ( Amer) Est GFR (MDRD) Non-Af Glucose Calcium Magnesium Total Bilirubin Direct Bilirubin Neonat Total Bilirubin Neonat Direct Bilirubin Neonat Indirect Bili AST ALT Alkaline Phosphatase Total Protein Albumin TSH 0.29 L Free T4 1.27 Free T3 pg/mL 5.42 H Urine Color STRAW Urine Appearance CLEAR Urine pH 6.0 Ur Specific [place] 1.004 Urine Protein NEGATIVE Urine Glucose (UA) NEGATIVE Urine Ketones TRACE H Urine Blood NEGATIVE Urine Nitrite NEGATIVE Urine Bilirubin NEGATIVE Urine Urobilinogen NEGATIVE Ur Leukocyte Esterase NEGATIVE Urine WBC (Auto) 0 Urine Mucus (Auto) RARE Urine Ascorbic Acid NEGATIVE Urine Opiates Screen Urine Methadone Screen Ur Barbiturates Screen Ur Phencyclidine Scrn Ur Amphetamines Screen U Benzodiazepines Scrn Urine Cocaine Screen U Marijuana (THC) Screen Serum Alcohol 04/08/20 17:01 WBC RBC Hgb Hct MCV MCH MCHC RDW Plt Count Lymph % (Auto) Vernon % (Auto) Eos % (Auto) Baso % (Auto) Absolute Neuts (auto) Absolute Lymphs (auto) Absolute Monos (auto) Absolute Eos (auto) Absolute Basos (auto) Seg Neutrophils % Sodium Potassium Chloride Carbon Dioxide Anion Gap BUN Creatinine Est GFR ( Amer) Est GFR (MDRD) Non-Af Glucose Calcium Magnesium Total Bilirubin Direct Bilirubin Neonat Total Bilirubin Neonat Direct Bilirubin Neonat Indirect Bili AST ALT Alkaline Phosphatase Total Protein Albumin TSH Free T4 Free T3 pg/mL Urine Color Urine Appearance Urine pH Ur Specific [place] Urine Protein Urine Glucose (UA) Urine Ketones Urine Blood Urine Nitrite Urine Bilirubin Urine Urobilinogen Ur Leukocyte Esterase Urine WBC (Auto) Urine Mucus (Auto) Urine Ascorbic Acid Urine Opiates Screen UNCONFIRMED POSITIVE Urine Methadone Screen UNCONFIRMED POSITIVE Ur Barbiturates Screen NEGATIVE Ur Phencyclidine Scrn NEGATIVE Ur Amphetamines Screen NEGATIVE U Benzodiazepines Scrn NEGATIVE Urine Cocaine Screen NEGATIVE U Marijuana (THC) Screen NEGATIVE Serum Alcohol (JEAN MARTELL) - EKG Interpretation by Me Additional EKG results interpreted by me: 04/08/20 16:26 Sinus rhythm with a rate of 83, QTC 437, no acute ischemic changes (JEAN MARTELL) Discharge <TARUN PIERCE - Last Filed: 04/08/20 17:09> <JEAN MARTELL - Last Filed: 04/08/20 20:26> - Discharge Clinical Impression: Drug interaction, Methadone use Condition: Stable Disposition: HOME, SELF-CARE Instructions: Instructions for Home Care Following a Drug Overdose ([facility]) Additional Instructions: You are on multiple medications that can interact to cause increased sedation and alteration in breathing pattern. Your drug screen demonstrated that you have methadone in your system and this can additionally interact with your prescribed medications causing alteration in breathing pattern that can put you at risk of . You should avoid taking the methadone. You should not take your Ativan with any other medications that can cause sedation such as the Flexeril or Marrero. Return immediately for any new or worsening symptoms Followup with your primary care provider, call tomorrow to make a followup appointment Avoid the use of methadone. You should not combine taking your Ativan with any narcotic medication including the hydrocodone or the methadone to avoid adverse interactions and potential from drug overdose You have been evaluated both medical and behavioral health teams have been deemed appropriate for discharge. You are highly encouraged to keep a sleep journal to track sleeping habits and any concerning event. Please follow up with neurology. Referrals: LUIZA HOLDER MD [Primary Care Provider] - Follow up tomorrow
[2020-04-08 16:49] LABS: FREE T3 5.42 pg/mL (2.77-5.27); FREE T4 (FREE THYROXINE) 1.27 ng/dL (0.78-2.19)
[2020-04-08 17:35] LABS: APPEARANCE,URINE CLEAR; BILIRUBIN,URINE NEGATIVE (NEGATIVE); COLOR,URINE STRAW; GLUCOSE, URINE NEGATIVE (NEGATIVE); KETONES,URINE TRACE mg/dL (NEGATIVE); LEUKOCYTE ESTERASE,URINE NEGATIVE (NEGATIVE); NITRITE,URINE NEGATIVE (NEGATIVE); PROTEIN,URINE NEGATIVE (NEGATIVE); URINE SPECIFIC GRAVITY 1.004; UROBILINOGEN,URINE NEGATIVE mg/dL (<2.0)
[2020-04-08 17:51] LABS: URINE AMPHETAMINES SCREEN NEGATIVE; URINE BARBITURATES SCREEN NEGATIVE; URINE BENZODIAZEPINES SCREEN NEGATIVE; URINE COCAINE SCREEN NEGATIVE; URINE MARIJUANA (THC) SCREEN NEGATIVE; URINE PHENCYCLIDINE SCREEN NEGATIVE
[2020-04-08 17:54] LABS: URINE METHADONE SCREEN UNCONFIRMED POSITIVE
[2020-04-08 19:25] VITALS: BP 124/85
--- NOTE | 2020-04-09 00:57 | EKG REPORT ---
SEVERITY:- NORMAL ECG - SINUS RHYTHM : Confirmed by: Juan Manuel Spears 09-Apr-2020 00:56:27
== END 2020-04-08 19:26 | disposition home or self-care (01) ==
LOC: ER 11:01
DX: F11.90 Opioid use, unspecified, uncomplicated (principal); T50.995A Adverse effect of other drugs, medicaments and biological substances, initial encounter; R53.1 Weakness; Y92.9 Unspecified place or not applicable; F17.200 Nicotine dependence, unspecified, uncomplicated
CPT/HCPCS: 93005; 99285; 96360; 96361; 36415; 84439; 80307 ×2; 83735; 84443; 85025; 80053; 81001; 84481; 71046; 70450; 93010; J7030

== ENCOUNTER 2020-04-21 23:36 | Emergency (ER) | payer BC ==
[2020-04-22] MEDS ORDERED: OXYCODONE-ACETAMINOPHEN 5-325 MG TABLET PO ONE (00:56)
[2020-04-22] MEDS ORDERED: LIDOCAINE 1% INJ-PF (10 MG/ML) 30 ML SDV INJ ONE (00:57)
--- NOTE | 2020-04-22 00:59 | ER Document Report ---
ED Medical Screen (RME) - General Chief Complaint: Laceration Stated Complaint: LEFT INDEX FINGER LACERATION Time Seen by Provider: 04/22/20 00:56 Primary Care Provider: LUIZA HOLDER MD [Primary Care Provider] - Follow up as needed Mode of Arrival: Ambulatory Information source: Patient Notes: 39-year-old male comes in today with lacerated left index finger. He was pulling out his sword this evening to look at it/clean it and it lacerated his left index finger over the PIP joint. Tetanus booster within 5 years Physical exam General and moderate discomfort Musculoskeletal approximate 2 cm laceration over the left index finger PIP joint I have greeted and performed a rapid initial assessment of this patient. A comprehensive ED assessment and evaluation of the patient, analysis of test results and completion of the medical decision making process will be conducted by additional ED providers. TRAVEL OUTSIDE OF THE [place] IN LAST 30 DAYS: No - Related Data Allergies/Adverse Reactions: tramadol Allergy (Verified 04/08/20 11:13) Past Medical History Pulmonary Medical History: Reports: Hx Asthma Renal/ Medical History: Denies: Hx Peritoneal Dialysis Musculoskeltal Medical History: Reports Hx Arthritis Psychiatric Medical History: Reports: Hx Anxiety Past Surgical History: Reports: Hx Tonsillectomy - Immunizations Hx Diphtheria, Pertussis, Tetanus Vaccination: Yes Physical Exam - Vital signs Vitals: Temp Pulse Resp BP Pulse Ox 98.0 F 93 16 126/84 H 99 04/22/20 00:01 04/22/20 00:01 04/22/20 00:01 04/22/20 00:01 04/22/20 00:01 Course - Vital Signs Vital signs: Temp Pulse Resp BP Pulse Ox 98.0 F 93 16 126/84 H 99 04/22/20 00:01 04/22/20 00:01 04/22/20 00:01 04/22/20 00:01 04/22/20 00:01 Doctor's Discharge - Discharge Referrals: LUIZA HOLDER MD [Primary Care Provider] - Follow up as needed
[2020-04-22] MEDS ORDERED: LIDOCAINE 2% INJ (20 MG/ML) 20 ML MDV INJ ONE (03:23)
--- NOTE | 2020-04-22 03:38 | ER Document Report ---
ED Wound - General Chief Complaint: Laceration Stated Complaint: LEFT INDEX FINGER LACERATION Time Seen by Provider: 04/22/20 00:56 Primary Care Provider: LUIZA HOLDER MD [Primary Care Provider] - Follow up as needed Mode of Arrival: Ambulatory Notes: CHIEF COMPLAINT: Left index finger laceration HPI: 39-year-old male [id number] with left index finger laceration over the PIP joint space region. Patient was fooling around with a sword and as he was pulling the sort out of the sheath cut his finger. States he is up-to-date on his tetanus vaccination. Denies numbness or tingling in the fingertips ROS: See HPI - all other systems were reviewed and are otherwise negative Constitutional: no fever Integumentary: + laceration Allergy: no hives Musculoskeletal: + extremity pain or swelling Neurological: no numbness/tingling, no weakness MEDICATIONS: I agree with the patient medications as charted by the RN. ALLERGIES: I agree with the allergies as charted by the RN. PAST MEDICAL HISTORY/PAST SURGICAL HISTORY: Reviewed and agree as charted by RN. SOCIAL HISTORY: Reviewed and agree as charted by RN. FAMILY HISTORY: No significant familial comorbid conditions directly related to patient complaint EXAM: Reviewed vital signs as charted by RN. CONSTITUTIONAL: Alert and oriented and responds appropriately to questions. Well-appearing; well-nourished HEAD: Normocephalic; atraumatic EYES: Conjunctivae clear, sclerae non-icteric ENT: normal nose; no rhinorrhea; moist mucous membranes NECK: Supple without meningismus CARD: symmetric distal pulses RESP: Normal chest excursion without splinting or tachypnea ABD/GI: non-distended BACK: The back appears normal EXT: Normal ROM in all joints; no cyanosis, no effusions, no edema. 1.5 cm L- shaped laceration over the dorsal PIP joint space region. No visible tendon injury. Patient able to flex and extend the finger at the MCP, PIP, DIP joint space region. Sensation intact in the distal fingertip to touch with capillary refill less than 3 seconds SKIN: Normal color for age and race; warm; dry; good turgor NEURO: Moves all extremities equally; Motor and sensory function intact PSYCH: The patient's mood and manner are appropriate. Grooming and personal hygiene are appropriate. MDM: 39-year-old male laceration to the left index finger. Area will require repair as it is over the joint space region TRAVEL OUTSIDE OF THE [place] IN LAST 30 DAYS: No - Related Data Allergies/Adverse Reactions: tramadol Allergy (Verified 04/08/20 11:13) Home Medications: adderal Past Medical History - General Information source: Patient - Social History Smoking Status: Current Every Day Smoker Family History: Reviewed & Not Pertinent Pulmonary Medical History: Reports: Hx Asthma Renal/ Medical History: Denies: Hx Peritoneal Dialysis Musculoskeletal Medical History: Reports Hx Arthritis Psychiatric Medical History: Reports: Hx Anxiety Past Surgical History: Reports: Hx Tonsillectomy - Immunizations Hx Diphtheria, Pertussis, Tetanus Vaccination: Yes Physical Exam - Vital signs Vitals: Temp Pulse Resp BP Pulse Ox 98.0 F 93 16 126/84 H 99 04/22/20 00:01 04/22/20 00:01 04/22/20 00:01 04/22/20 00:01 04/22/20 00:01 Course - Vital Signs Vital signs: Temp Pulse Resp BP Pulse Ox 98.0 F 93 16 126/84 H 99 04/22/20 00:01 04/22/20 00:01 04/22/20 00:01 04/22/20 00:01 04/22/20 00:01 Procedures - Laceration/Wound Repair Left Finger 2nd digit Time completed: 04:18 Wound length (cm): 1.5 Wound's Depth, Shape: Linear, Flap Laceration pre-procedure: Sterile PPE donned, Sterile drapes applied, Other Volume Anesthetic (mLs): 2 Wound explored: Clean Irrigated w/ Saline (mLs): 500 Wound Repaired With: Sutures Suture Size/Type: 5:0, Prolene Post-procedure wound care: Sterile dressing applied, Splint applied Post-procedure NV exam normal: Yes Complications: No Discharge - Discharge Clinical Impression: Laceration of finger of left hand Qualifiers: Encounter type: initial encounter Finger: index finger Damage to nail status: without damage Foreign body presence: without foreign body Qualified Code(s): S61.211A - Laceration without foreign body of left index finger without damage to nail, initial encounter Condition: Stable Disposition: HOME, SELF-CARE Additional Instructions: Motrin or Tylenol for pain. Sutures out as directed, 10 to 14 days on suture removal Keep the area as clean and dry as possible applying antibiotic ointment and dressing daily. Return for any redness, discharge, swelling or signs of infection. Referrals: LUIZA HOLDER MD [Primary Care Provider] - Follow up as needed
[2020-04-22 04:33] VITALS: BP 118/60
== END 2020-04-22 04:34 | disposition home or self-care (01) ==
LOC: ER 23:36
DX: S61.211A Laceration without foreign body of left index finger without damage to nail, initial encounter (principal); W26.0XXA Contact with knife, initial encounter; F17.200 Nicotine dependence, unspecified, uncomplicated
CPT/HCPCS: 99283; 12001; J3490